=== PATIENT | female | born 1960 | race Caucasian/White ===

== ENCOUNTER 2022-12-29 21:32 | Inpatient (IN) | payer OTHER ==
[~2022-12-29] VITALS: Ht 165.1 cm; Wt 95.3 kg
[~2022-12-29 21:32] MED LIST: ACET325C7 PO; APIX5TAB PO; BISA10SU11 RC; DOCU100C36 PO; FURO-144 PO; HYDR-4303 PO; LACT10SO29 PO; LORA-259 PO; MAGN400O6 PO; NA P133E RC; PANT40TA2 PO; POTA-58 PO; SERT25TA PO
--- NOTE | 2022-12-29 22:07 | NUR ---
BIBRA 37 FROM [facility] FOR ABDOMINAL DISTENTION, W/ HX OF ASCITES. PLACED IN BED, VITALS CHECKED. AWAITING MD INTERIANO.
[2022-12-29] MEDS ORDERED: ONDANSETRON HCL/PF 4 MG/2 ML VIAL ONE (22:55)
[2022-12-29] MEDS ORDERED: MORPHINE SULFATE INJ 2 MG/ML DISP.SYRIN ONE (22:55)
--- NOTE | 2022-12-29 22:58 | NUR ---
EKG DONE AT BEDSIDE
[2022-12-29] MEDS ORDERED: ONDANSETRON HCL/PF - ER 4 MG/2 ML VIAL IV ONE (23:00)
[2022-12-29] MEDS ORDERED: MORPHINE SULFATE INJ 2 MG/ML DISP.SYRIN IV ONE (23:00)
--- NOTE | 2022-12-29 23:10 | NUR ---
ESTABLISHED IV LINE AT L HAND, 20G. BLOOD DRAWN AND HANDED IT TO THE PHLEB AT BEDSIDE.
[2022-12-29 23:24] LABS: BASOPHILS # (AUTO) 0.1 K/uL (0.0-0.2); BASOPHILS % (AUTO) 1.1 % (0.0-2.0); EOSINOPHILS % (AUTO) 0.8 % (0.0-6.0); HEMATOCRIT 35 % (33-45); HEMOGLOBIN 10.7 g/dL (11.5-14.8); LYMPHOCYTES # (AUTO) 1.6 K/uL (0.8-4.8); LYMPHOCYTES % (AUTO) 20.4 % (20.0-44.0); MEAN CORPUSCULAR HGB CONC 31 g/dl (31.0-36.0); MEAN CORPUSCULAR VOLUME 74 fL (82-100); MONOCYTES # (AUTO) 1.1 K/uL (0.1-1.30); MONOCYTES % (AUTO) 14.6 % (2.0-12.0); NEUTROPHILS # (AUTO) 4.9 K/uL (1.8-8.9); NEUTROPHILS % (AUTO) 63.1 % (43.0-81.0); PLATELET COUNT (AUTO) 305 K/uL (150-450); RED BLOOD CELL COUNT(AUTO) 4.72 MIL/uL (4.0-5.2); WHITE BLOOD COUNT (AUTO) 7.8 K/uL (4.3-11.0)
[2022-12-29 23:34] LABS: CALCIUM, SERUM 8.9 mg/dL (8.5-10.1); CREATININE 1.1 mg/dL (0.6-1.3); POTASSIUM 2.9 mmol/L (3.5-5.1)
--- NOTE | 2022-12-29 23:37 | NUR ---
URINE SAMPLE COLLECTED AND SENT TO LAB.
--- NOTE | 2022-12-29 23:39 | NUR ---
SMOKE JUMPER AT BEDSIDE.
[2022-12-29 23:40] LABS: ALBUMIN 1.9 g/dL (3.4-5.0); BILIRUBIN,DIRECT 1.8 mg/dL (0.0-0.2); BILIRUBIN,TOTAL 2.7 mg/dL (0.2-1.0); TOTAL PROTEIN, SERUM 6.7 g/dL (6.4-8.2)
[2022-12-30 00:38] LABS: BILIRUBIN,URINE 1+ (NEGATIVE); COLOR,URINE YELLOW (YELLOW); LEUKOCYTE ESTERASE ,URINE NEGATIVE (NEGATIVE); NITRITE, URINE NEGATIVE (NEGATIVE); PROTEIN,URINE NEGATIVE (NEGATIVE); UGLUCOSE NEGATIVE (NEGATIVE)
[2022-12-30 00:51] LABS: BACTERIA,URINE None seen /HPF (None Seen); CALCIUM OXALATE CRYSTALS,UR Moderate /HPF (None Seen); RBC,URINE 0-2 /HPF (0-2); SQUAMOUS EPITHELIAL CELL,UR 0-2 /HPF (None Seen); WBC,URINE 0-2 /HPF (0-3)
[2022-12-30 00:58] LABS: EOSINOPHILS % (MANUAL) 1 % (0-4); LYMPHOCYTES % (MANUAL) 20 % (16-48); MONOCYTES % (MANUAL) 5 % (0-11.0); NEUTROPHILS % (MANUAL) 74 (42-76)
[2022-12-30] MEDS ORDERED: ALBUMIN 25% 12.5 GM in PREMIX 1 EA IV PRN (01:30)
[2022-12-30] MEDS ORDERED: Z GUARD REMEDY 4 OZ OINT TP PRN (01:30)
[2022-12-30] MEDS ORDERED: MORPHINE SULFATE INJ 2 MG/ML DISP.SYRIN IV PRN (01:30)
[2022-12-30] MEDS ORDERED: MAGNESIUM HYDROXIDE 30 ML UDC PO PRN ×2 (01:30→10:00)
[2022-12-30] MEDS ORDERED: ONDANSETRON HCL/PF 4 MG/2 ML VIAL IVP PRN (01:30)
[2022-12-30] MEDS ORDERED: MORPHINE SULFATE INJ 2 MG/ML DISP.SYRIN IV ONE (01:30)
[2022-12-30] MEDS ORDERED: POTASSIUM CHLORIDE 20 MEQ TAB.PRT.SR PO ONE ×2 (01:45→01:49)
[2022-12-30] MEDS ORDERED: MORPHINE SULFATE INJ 2 MG/ML DISP.SYRIN ONE (01:49)
--- NOTE | 2022-12-30 02:02 | NUR ---
REPORT GIVEN TO NESHA DIAZ ([facility]).
--- NOTE | 2022-12-30 02:12 | NUR ---
PT TRANSFERRED TO [facility]IA [facility] PROTOCOL.
--- NOTE | 2022-12-30 02:15 | NUR ---
PAIN MANAGEMENT NURSE PRACTITIONER NOTES ADMITTED A 62 Y/O FEMALE WITH CC OF ABDOMINAL DISTENTION; CAME FROM ER VIA GURNEY TRANSFERRED PATIENT TO BED SAFELY AND SECURED; A/O X 4 WITH EPISODES OF FORGETFULNESS; HOOKED TO OXYGEN VIA NASAL CANNULA AT 2 LPM SATURATING WELL; WITH IV ACCESS AT LEFT HAND #20G SL PATENT AND INTACT NO SWELLING OR INFILTRATION NOTED, ON CARDIAC DIET NURSING SWALLOW EVALUATION DONE NO ASPIRATION NOTED. PATIENT ABDOMEN IS DISTENDED; SKIN ASSESSMENT DONE; NOTED RASH AT PERINEAL AREA REFUSED FOR TAKING PICTURES; PATIENT ON BEDREST UNABLE TO STAND; HISTORY TAKEN AND RECORDED; ALL ATTENDING PHYSICIAN INFORMED; ALL ADMITTING ORDERS DONE; BED BATH DONE; PATIENT IS ORIENTED THE UNIT; PATIENT IS COOPERATIVE AND ABLE TO TURN, KEPT BED ON LOWER LOCKED POSITION; KEPT SIDE RAILS UP X 2 ALL THE TIME; KEPT CALL LIGHT WITHIN AT REACH. WILL CONTINUE TO MONITOR.
--- NOTE | 2022-12-30 06:46 | NUR ---
RN CLOSING NOTES PATIENT IS IN BED ASLEEP, A/O X 4 ABLE TO VERBALIZED NEEDS AND CONCERNS; HOOKED TO OXYGEN VIA NASAL CANNULA AT 2 LPM SATURATING WELL NO SOB/ NOTED AT THIS TIME, PATIENT IS ON BED REST, WITH IV ACCESS AT LEFT HAND #20G -SL PATENT AND INTACT NO SWELLING OR INFILTRATION NOTED AT THIS TIME. FOR US PARACENTESIS, ALL DUE MEDICATIONS GIVEN ORDERED, ALL NEEDS ATTENDED. KEPT BED ON MODERATE HIHG BACK REST POSITION, KEPT SIDE RAILS UP X 2 ALL THE TIME, KEPT CALL LIGHT WITHIN AT REACH, WILL ENDORSED TO AM SHIFT FOR LAUREN.
--- NOTE | 2022-12-30 07:10 | NUR ---
TRIMMING MACHINE SET UP OPERATOR OPENING NOTES Received pt awake in bed AOX4. No complaints of pain or discomfort at this time. Pt is currently on 2L NC and tolerating it well. IV access on left hand 20G patent and intact. HOB elevated to pts comfort. Siderails up at all times x3. Call light within reach. Will continue to monitor.
[2022-12-30] MEDS ORDERED: PANTOPRAZOLE 40 MG TABLET.DR PO SCH (07:30)
[2022-12-30 08:00] VITALS: BP 116/81; TEMP 97.9; O2SAT 95
[2022-12-30] MEDS ORDERED: ONDA4TAB5 PO (08:08)
[2022-12-30] MEDS ORDERED: POTA-10 PO (08:08)
[2022-12-30] MEDS ORDERED: MELA3TAB41 PO (08:08)
[2022-12-30] MEDS ORDERED: FURO-144 PO (08:08)
[2022-12-30] MEDS ORDERED: PANT40TA2 PO (08:08)
[2022-12-30] MEDS ORDERED: POTA-58 PO (08:08)
[2022-12-30] MEDS ORDERED: SERT25TA PO (08:08)
[2022-12-30] MEDS ORDERED: SUCR1TAB31 PO (08:08)
[2022-12-30] MEDS ORDERED: DIPH50CA4 PO (08:08)
[2022-12-30] MEDS ORDERED: LORAZEPAM 1 MG TABLET PO PRN (10:00)
[2022-12-30] MEDS ORDERED: diphenhydrAMINE HCL 50 MG CAPSULE PO PRN (10:00)
[2022-12-30] MEDS ORDERED: NA PHOS,M-B/NA PHOS,DI-BA 1 EA ENEMA RC PRN (10:00)
[2022-12-30] MEDS ORDERED: HYDROCODONE/APAP 5/325MG TABLET PO PRN ×2 (10:00)
[2022-12-30] MEDS: SUCRALFATE 1 G TABLET PO SCH ×3 (11:05→23:17)
[2022-12-30] MEDS: SERTRALINE HCL 25 MG TABLET PO SCH (11:05)
--- NOTE | 2022-12-30 11:50 | NUR ---
BIBLE READER NOTES Paracentesis done and 5L of fluid taken out. Pt tolerated the procedure well.
--- NOTE | 2022-12-30 13:20 | NUR ---
MOHSEN Botello NP notified that 5L of fluid was taken out Addendum: 12/30/22 at 1321 by NESHA MATTHEWS LVN ERROR
--- NOTE | 2022-12-30 13:21 | NUR ---
CLERICAL CAR CHECKER NOTES LUKAS Botello made aware that 5L of fluid was taken out from the paracentesis with orders to discard the fluid and Ok to continue eliquis.
[2022-12-30 16:00] VITALS: BP 118/71; TEMP 97.9; O2SAT 95
[2022-12-30] MEDS: FUROSEMIDE 40 MG TABLET PO SCH (16:42)
[2022-12-30] MEDS: DOCUSATE SODIUM 100 MG CAPSULE PO SCH (16:42)
[2022-12-30] MEDS: APIXABAN 5 MG TABLET PO SCH (16:43)
--- NOTE | 2022-12-30 18:27 | NUR ---
PACKER INSPECTOR CLOSING NOTES All due meds and tx given as ordered. Pt tolerated everything well. All needs attended to. Call light within reach. Will endorse to oncoming nurse.
--- NOTE | 2022-12-30 19:35 | NUR ---
RN OPENING NOTES PATIENT IS IN BED AWAKE, A/O X 4 ABLE TO VERBALIZED NEEDS AND CONCERNS; ON SUPPLEMENTAL OXYGEN VIA NASAL CANNULA AT 2 LPM, NO SOB/ NOTED AT THIS TIME. IV ACCESS AT LEFT HAND #20G, FLUSHES WELL, PATENT AND INTACT NO SWELLING OR INFILTRATION NOTED AT THIS TIME. BED LOCKED IN THE LOWEST POSITION, SIDE RAILS UP X 2, CALL LIGHT AND BELONGINGS WITHIN REACH, BED ALARM ON. WILL CONTINUE TO MONITOR. Addendum: 12/31/22 at 0202 by SOFIA GRIFFIN RN MARÍA NOTED, DRAINING YELLOW COLOR OUTPUT.
[2022-12-30 20:00] VITALS: BP 137/81; TEMP 98.3; O2SAT 94
[2022-12-31] VITALS: BP 137/81; TEMP 98.3; O2SAT 94
[2022-12-31 04:00] VITALS: BP 128/83; TEMP 97.5; O2SAT 98
--- NOTE | 2022-12-31 04:23 | NUR ---
RN NOTE DR SCHULTE'S NOTE SAYS DWAYNE POST PARACENTESIS. COMMUNICATED TO LUKAS GUADARRAMA. NO NEW ORDERS RESPONSE WAS RECEIVED.
[2022-12-31 05:48] LABS: BASOPHILS # (AUTO) 0.1 K/uL (0.0-0.2); BASOPHILS % (AUTO) 1.6 % (0.0-2.0); HEMATOCRIT 34 % (33-45); HEMOGLOBIN 10.4 g/dL (11.5-14.8); LYMPHOCYTES # (AUTO) 1.5 K/uL (0.8-4.8); LYMPHOCYTES % (AUTO) 25.7 % (20.0-44.0); MEAN CORPUSCULAR HGB CONC 31 g/dl (31.0-36.0); MEAN CORPUSCULAR VOLUME 74 fL (82-100); MONOCYTES # (AUTO) 1.1 K/uL (0.1-1.30); MONOCYTES % (AUTO) 18.3 % (2.0-12.0); NEUTROPHILS # (AUTO) 3.1 K/uL (1.8-8.9); NEUTROPHILS % (AUTO) 52.4 % (43.0-81.0); PLATELET COUNT (AUTO) 273 K/uL (150-450); RED BLOOD CELL COUNT(AUTO) 4.56 MIL/uL (4.0-5.2); WHITE BLOOD COUNT (AUTO) 5.9 K/uL (4.3-11.0)
[2022-12-31] MEDS: SUCRALFATE 1 G TABLET PO SCH ×2 (05:50→12:15)
[2022-12-31 06:03] LABS: CREATININE 1.1 mg/dL (0.6-1.3); MAGNESIUM 2.1 mg/dL (1.8-2.4); PHOSPHORUS 3.3 mg/dL (2.5-4.9); POTASSIUM 3.1 mmol/L (3.5-5.1)
[2022-12-31 06:16] LABS: EOSINOPHILS % (MANUAL) 3 % (0-4); LYMPHOCYTES % (MANUAL) 24 % (16-48); MONOCYTES % (MANUAL) 11 % (0-11.0); NEUTROPHILS % (MANUAL) 62 (42-76)
--- NOTE | 2022-12-31 06:50 | NUR ---
RN CLOSING NOTES PATIENT IS IN BED AWAKE, A/O X 4 ABLE TO VERBALIZED NEEDS AND CONCERNS; ON SUPPLEMENTAL OXYGEN VIA NASAL CANNULA AT 2 LPM, SATURATION 98%, NO SOB/ NOTED AT THIS TIME. IV ACCESS AT LEFT HAND #20G, FLUSHES WELL, PATENT AND INTACT NO SWELLING OR INFILTRATION NOTED AT THIS TIME. PUREWICK NOTED, DRAINING YELLOW COLOR OUTPUT. BED LOCKED IN THE LOWEST POSITION, SIDE RAILS UP X 2, CALL LIGHT AND BELONGINGS WITHIN REACH, BED ALARM ON. WILL ENDORSE TO THE NEXT SHIFT.
--- NOTE | 2022-12-31 07:37 | NUR ---
RN OPENING NOTES PATIENT RECEIVED IN BED AWAKE, A/O X 4 ABLE TO VERBALIZED NEEDS AND CONCERNS. ON 2L OF O2 VIA NASAL CANNULA WITH NO S/S OF SOB OR RESPIRATORY DISTRESS NOTED. IV ACCESS AT LEFT HAND #20G, PATENT AND INTACT. SAFETY MEASURES IN PLACE WITH BED IN LOWEST LOCKED POSITION, SIDE RAILS UP X 2, CALL LIGHT AND BELONGINGS WITHIN REACH, BED ALARM ON. WILL CONTINUE TO MONITOR.
[2022-12-31 08:00] VITALS: BP 116/75; TEMP 97.7; O2SAT 97
[2022-12-31] MEDS ORDERED: PANTOPRAZOLE 40 MG TABLET.DR PO SCH (09:00)
[2022-12-31] MEDS ORDERED: SPIRONOLACTONE 25 MG TABLET PO SCH (09:00)
[2022-12-31] MEDS ORDERED: POTASSIUM CHLORIDE 20 MEQ TAB.PRT.SR PO SCH ×2 (09:00)
[2022-12-31] MEDS: SERTRALINE HCL 25 MG TABLET PO SCH (09:08)
[2022-12-31] MEDS: DOCUSATE SODIUM 100 MG CAPSULE PO SCH (09:09)
[2022-12-31] MEDS: FUROSEMIDE 40 MG TABLET PO SCH (09:10)
[2022-12-31] MEDS: APIXABAN 5 MG TABLET PO SCH (09:10)
[2022-12-31] MEDS ORDERED: SPIR25TA6 PO (11:11)
[2022-12-31 11:40] VITALS: O2SAT 93
--- NOTE | 2022-12-31 11:42 | NUR ---
PATIENT FOUND WITH O2 2 L AWAKE AND ALERT. PATIENT IS STABLE NO DISTRESS NOTED. Addendum: 12/31/22 at 1143 by CATIA KNOX RT Amended: Links added.
--- NOTE | 2022-12-31 15:00 | NUR ---
ALBUMIN 25% WAS NOT ADMINISTERED POST PARACENTESIS ON 12/30. IT WAS ADMINISTERED THIS AFTERNOON 12/31 AT 1400. INEZ MEDEL.
--- NOTE | 2022-12-31 15:36 | NUR ---
PATIENT DISCHARGED IN STABLE CONDITION. REPORT GIVEN TO ALL CARE LIVING NESHA RODRIGUEZ.
== END 2022-12-31 15:24 | DRG 280 ==
LOC: ER 21:33 → MEDSG1 12-30 01:20
PROVIDERS: ADMIT Nurse Practitioner Acute Care; ATTEND Nurse Practitioner Acute Care
PROC: 0W9G3ZZ Drainage of Peritoneal Cavity, Percutaneous Approach (ICD-10-PCS; principal; 2022-12-30)
DX: K70.31 Alcoholic cirrhosis of liver with ascites (principal); E43 Unspecified severe protein-calorie malnutrition; D68.59 Other primary thrombophilia; J90 Pleural effusion, not elsewhere classified; E88.09 Other disorders of plasma-protein metabolism, not elsewhere classified; R09.02 Hypoxemia; Z86.16 Personal history of COVID-19; Z86.711 Personal history of pulmonary embolism; Z87.11 Personal history of peptic ulcer disease; Z85.3 Personal history of malignant neoplasm of breast; Z88.1 Allergy status to other antibiotic agents; Z79.01 Long term (current) use of anticoagulants; Z79.899 Other long term (current) drug therapy; E66.01 Morbid (severe) obesity due to excess calories; G47.33 Obstructive sleep apnea (adult) (pediatric); E87.6 Hypokalemia; D53.9 Nutritional anemia, unspecified; R74.01 Elevation of levels of liver transaminase levels
CPT/HCPCS: 36415; 71045-TC; 71250-TC; 76942-TC; 80048-TC; 80076-TC; 81001; 83690-TC; 83735-TC; 84100-TC; 85025-TC; 85730-TC; 87081-TC; 93970-TC; 94799-TC; A4216; A4223; G0378; J2270; J2405; J7030; J7050; P9047; Q0163

== ENCOUNTER 2023-01-15 11:14 | Inpatient (IN) | payer OTHER ==
[2023-01-15] VITALS (8 sets, daily range): BP systolic 87–156; BP diastolic 53–98; TEMP 98.4; O2SAT 96–100
[~2023-01-15] VITALS: Ht 160 cm; Wt 89.4 kg
[~2023-01-15 11:14] MED LIST changes: +DIPH50CA4 PO; +MELA3TAB41 PO; +ONDA4TAB5 PO; +SPIR25TA6 PO; +SUCR1TAB31 PO
[2023-01-15] MEDS ORDERED: LEVOFLOXACIN 500 MG /D5W 100ML 500 MG/100 ML PIGGYBACK IV ONE (11:30)
[2023-01-15] MEDS ORDERED: FLAGYL/NS RTU 500 MG/100 ML PIGGYBACK IV ONE (11:30)
[2023-01-15] MEDS ORDERED: IV NS 0.9% 1,000 ML BAG IV ONE ×2 (12:00→14:30)
[2023-01-15] MEDS ORDERED: MAGN400T26 PO (12:02)
[2023-01-15] MEDS ORDERED: BISA10SU11 RC (12:02)
[2023-01-15] MEDS ORDERED: METRONIDAZOLE 500MG/ NS 100ML 100 ML IV ONE (12:43)
[2023-01-15] MEDS ORDERED: LEVOFLOXACIN 500 MG /D5W 100ML 100 ML IV ONE (12:57)
[2023-01-15 13:10] LABS: BASOPHILS % (AUTO) 0.1 % (0.0-2.0); EOSINOPHILS % (AUTO) 0.2 % (0.0-6.0); HEMATOCRIT 36 % (33-45); HEMOGLOBIN 10.9 g/dL (11.5-14.8); LYMPHOCYTES # (AUTO) 1.3 K/uL (0.8-4.8); LYMPHOCYTES % (AUTO) 12.1 % (20.0-44.0); MEAN CORPUSCULAR HEMOGLOBIN 23 PG (26.0-33.0); MEAN CORPUSCULAR HGB CONC 31 g/dl (31.0-36.0); MEAN CORPUSCULAR VOLUME 74 fL (82-100); MONOCYTES # (AUTO) 0.9 K/uL (0.1-1.30); NEUTROPHILS # (AUTO) 8.7 K/uL (1.8-8.9); NEUTROPHILS % (AUTO) 79.6 % (43.0-81.0); PLATELET COUNT (AUTO) 292 K/uL (150-450); RED BLOOD CELL COUNT(AUTO) 4.81 MIL/uL (4.0-5.2); RED CELL DISTRIBUTION WIDTH 26.9 % (11.5-15.0); WHITE BLOOD COUNT (AUTO) 10.9 K/uL (4.3-11.0)
[2023-01-15 13:37] LABS: CARBON DIOXIDE 22 mmol/L (21-32); CHLORIDE 98 mmol/L (98-107); CREATININE 2.4 mg/dL (0.6-1.3); GLUCOSE 77 mg/dL (74-106); POTASSIUM 5.6 mmol/L (3.5-5.1); SODIUM SERUM 132 mmol/L (136-145); UREA NITROGEN, BLOOD 46 mg/dL (7-18)
[2023-01-15 13:38] LABS: LACTIC ACID 4.9 mmol/L (0.4-2.0)
[2023-01-15 13:41] LABS: INR 1.92 (0.91-1.10); PARTIAL THROMBOPLASTIN TIME 40.5 SEC (24.3-34.3); PROTHROMBIN TIME 19.4 SECS (9.2-11.1)
[2023-01-15 13:51] LABS: ALANINE AMINOTRANSFERASE 83 U/L (12-78); ALBUMIN 1.8 g/dL (3.4-5.0); ALKALINE PHOSPHATASE 675 U/L (46-116); ASPARTATE AMINOTRANSFERASE 319 U/L (15-37); BILIRUBIN,DIRECT 5.5 mg/dL (0.0-0.2); NT-PRO BNP 616 pg/mL (0-125); TOTAL PROTEIN, SERUM 6.7 g/dL (6.4-8.2)
[2023-01-15 13:55] LABS: ANISOCYTOSIS 2+; HYPOCHROMASIA 2+; LYMPHOCYTES % (MANUAL) 16 % (16-48); MONOCYTES % (MANUAL) 3 % (0-11.0); NEUTROPHILS % (MANUAL) 81 (42-76); PLATELET ESTIMATE ADEQUATE
[2023-01-15 13:56] LABS: TARGET CELLS 1+
[2023-01-15 15:02] LABS: ALCOHOL, BLOOD < 3 mg/dL (0-10); SERUM AMMONIA 62 umol/L (11-32)
[2023-01-15] MEDS ORDERED: NA PHOS,M-B/NA PHOS,DI-BA 1 EA ENEMA RC PRN (15:30)
[2023-01-15] MEDS ORDERED: LORAZEPAM 1 MG TABLET PO PRN (15:30)
[2023-01-15] MEDS ORDERED: LACTULOSE 10 G/15 ML UDC (PYXIS) PO PRN ×2 (16:30→17:30)
[2023-01-15] MEDS ORDERED: MAGNESIUM OXIDE 400 MG TABLET PO SCH (17:00)
[2023-01-15] MEDS ORDERED: DOCUSATE SODIUM 100 MG CAPSULE PO SCH (17:00)
[2023-01-15 17:05] LABS: ABG BASE EXCESS -2.2 mmol/L; ABG OXYGEN SATURATION 90.8 % (92.0-98.5); ABG PCO2 30.7 mmHg (35.0-45.0); ABG PH 7.451 (7.350-7.450); ABG PO2 63.5 mmHg (75.0-100.0); ABG TOTAL HEMOGLOBIN 11.7 G/dL (12.0-16.0); COHb 0.6 % (0.5-1.5); MetHb 0.5 % (0.0-1.5); O2Hb 89.8 % (94.0-97.0); SITE, ABG Right Radial; VENT MODE, BG ROOM AIR
[2023-01-15] MEDS ORDERED: LACTULOSE 10 G/15 ML UDC (PYXIS) PO ONE (17:30)
[2023-01-15] MEDS ORDERED: FAMOTIDINE/PF INJ 20 MG/2 ML VIAL IV ONE (18:00)
[2023-01-15] MEDS ORDERED: PROPOFOL 100 ML IV PRN (18:00)
[2023-01-15] MEDS ORDERED: ETOMIDATE 2 MG/ML VIAL IV ONE (18:00)
[2023-01-15] MEDS ORDERED: ROCURONIUM BROMIDE 50 MG/5 ML IV ONE (18:00)
[2023-01-15] MEDS ORDERED: FAMOTIDINE/PF INJ 20 MG/2 ML VIAL IV SCH (18:00)
[2023-01-15 18:04] LABS: ACETAMINOPHEN < 10 ug/ml (10-30)
[2023-01-15 18:05] LABS: SALICYLATE < 2.3 mg/dL (2.8-20.0)
[2023-01-15] MEDS: NOREPINEPHRINE 8 MG in IV NS 0.9% 250ML IV PRN ×2 (18:22→18:50)
[2023-01-15] MEDS ORDERED: NOREPINEPHRINE 8 MG in IV NS 0.9% 250 ML IV ONE (18:30)
[2023-01-15 18:46] LABS: CALCIUM, SERUM 9.5 mg/dL (8.5-10.1); CREATININE 2.7 mg/dL (0.6-1.3); POTASSIUM 5.5 mmol/L (3.5-5.1)
[2023-01-15 19:40] LABS: AMPHETAMINE, URINE NEGATIVE (NEGATIVE); BARBITURATE, URINE NEGATIVE (NEGATIVE); BENZODIAZEPINE, URINE NEGATIVE (NEGATIVE); CANNABINOID, URINE NEGATIVE (NEGATIVE); COCCAINE, URINE NEGATIVE (NEGATIVE); PHENCYCLIDINE SCREEN,URINE NEGATIVE (NEGATIVE)
[2023-01-15 19:41] LABS: OPIATE, URINE POSITIVE (NEGATIVE)
[2023-01-15 19:55] LABS: APPEARANCE,URINE CLOUDY (CLEAR); BILIRUBIN,URINE 2+ (NEGATIVE); BLOOD, URINE 3+ Ery/uL (NEGATIVE); COLOR,URINE RED (YELLOW); KETONES,URINE TRACE mg/dL (NEGATIVE); LEUKOCYTE ESTERASE ,URINE TRACE (NEGATIVE); NITRITE, URINE POSITIVE (NEGATIVE); PH,URINE 5.5 (5.0-8.0); PROTEIN,URINE 2+ mg/dl (NEGATIVE); UGLUCOSE NEGATIVE (NEGATIVE)
[2023-01-15] MEDS: NOREPINEPHRINE 8 MG in IV NS 0.9% 242 ML IV PRN (20:14)
[2023-01-15 20:24] LABS: RBC,URINE 81-100 /HPF (0-2)
[2023-01-15 20:25] LABS: ADD URINE CULTURE YES; BACTERIA,URINE 2+ /HPF (None Seen); MUCUS,URINE Moderate /LPF (None Seen); SQUAMOUS EPITHELIAL CELL,UR Many /HPF (None Seen)
[2023-01-15] MEDS: PROPOFOL 100 ML IV PRN (20:25)
[2023-01-15] MEDS ORDERED: ALBUMIN 25% 25 GM in PREMIX 1 EA IV SCH (20:30)
[2023-01-15] MEDS ORDERED: CEFTRIAXONE 1 G in IV D5W 50 ML IV SCH (21:00)
[2023-01-15] MEDS: APIXABAN 5 MG TABLET PO SCH (21:00)
[2023-01-15 22:03] LABS: LIPASE 198 U/L (73-393)
[2023-01-15 22:05] LABS: SERUM AMMONIA 23 umol/L (11-32)
[2023-01-15] MEDS: LACTULOSE 10 G/15 ML UDC (PYXIS) PO SCH (22:08)
[2023-01-15 22:37] LABS: ABG BASE EXCESS -7.2 mmol/L; ABG OXYGEN SATURATION 96.8 % (92.0-98.5); ABG PCO2 33.4 mmHg (35.0-45.0); ABG PH 7.341 (7.350-7.450); AaDO2 581.6 mmHg; MetHb 0.2 % (0.0-1.5); O2Hb 95.6 % (94.0-97.0); PEEP,BG 5 cm H2O; SITE, ABG Right Brachial
[2023-01-15] MEDS: RIFAXIMIN 550 MG TABLET PO SCH (22:42)
[2023-01-15] MEDS: SUCRALFATE 1 G TABLET PO SCH (23:29)
[2023-01-16] VITALS (48 sets, daily range): BP systolic 83–132; BP diastolic 40–91; TEMP 97.8–98.8; O2SAT 92–100
[2023-01-16] MEDS ORDERED: FUROSEMIDE 40 MG/4 ML VIAL IV SCH (02:00)
[2023-01-16] MEDS: PROPOFOL 100 ML IV PRN ×3 (04:12→17:52)
[2023-01-16 04:48] LABS: BASOPHILS # (AUTO) 0.1 K/uL (0.0-0.2); BASOPHILS % (AUTO) 0.3 % (0.0-2.0); EOSINOPHILS % (AUTO) 0.1 % (0.0-6.0); HEMATOCRIT 32 % (33-45); HEMOGLOBIN 9.7 g/dL (11.5-14.8); LYMPHOCYTES # (AUTO) 1.6 K/uL (0.8-4.8); LYMPHOCYTES % (AUTO) 6.9 % (20.0-44.0); MEAN CORPUSCULAR HEMOGLOBIN 23 PG (26.0-33.0); MEAN CORPUSCULAR HGB CONC 31 g/dl (31.0-36.0); MEAN CORPUSCULAR VOLUME 75 fL (82-100); MONOCYTES # (AUTO) 1.9 K/uL (0.1-1.30); NEUTROPHILS # (AUTO) 19.9 K/uL (1.8-8.9); NEUTROPHILS % (AUTO) 84.7 % (43.0-81.0); PLATELET COUNT (AUTO) 290 K/uL (150-450); RED BLOOD CELL COUNT(AUTO) 4.23 MIL/uL (4.0-5.2); RED CELL DISTRIBUTION WIDTH 26.9 % (11.5-15.0); WHITE BLOOD COUNT (AUTO) 23.5 K/uL (4.3-11.0)
[2023-01-16 05:06] LABS: ALBUMIN 2.1 g/dL (3.4-5.0); BILIRUBIN,TOTAL 7.3 mg/dL (0.2-1.0); CALCIUM, SERUM 9.8 mg/dL (8.5-10.1); CREATININE 2.6 mg/dL (0.6-1.3); MAGNESIUM 2.4 mg/dL (1.8-2.4); PHOSPHORUS 5.8 mg/dL (2.5-4.9); TOTAL PROTEIN, SERUM 6.3 g/dL (6.4-8.2)
[2023-01-16 05:12] LABS: ANISOCYTOSIS 1+; HYPOCHROMASIA 2+; LYMPHOCYTES % (MANUAL) 2 % (16-48); MONOCYTES % (MANUAL) 9 % (0-11.0); NEUTROPHILS % (MANUAL) 89 (42-76); PLATELET ESTIMATE ADEQUATE
[2023-01-16 05:13] LABS: TARGET CELLS 2+
[2023-01-16] MEDS: NOREPINEPHRINE 8 MG in IV NS 0.9% 242 ML IV PRN ×2 (05:19→13:09)
[2023-01-16] MEDS: SUCRALFATE 1 G TABLET PO SCH (06:31)
[2023-01-16] MEDS ORDERED: ALBUMIN 25% 25 GM in PREMIX 1 EA IV SCH (07:00)
[2023-01-16] MEDS ORDERED: Z GUARD REMEDY 4 OZ OINT TP PRN (08:00)
[2023-01-16] MEDS: APIXABAN 5 MG TABLET PO SCH (08:02)
[2023-01-16] MEDS: RIFAXIMIN 550 MG TABLET PO SCH ×2 (08:03→08:38)
[2023-01-16] MEDS: PROPRANOLOL HCL 40 MG TABLET PO SCH ×2 (08:03→16:08)
[2023-01-16 08:24] LABS: ABG BASE EXCESS -2.7 mmol/L; ABG OXYGEN SATURATION 93.4 % (92.0-98.5); ABG PCO2 33.6 mmHg (35.0-45.0); ABG PH 7.418 (7.350-7.450); ABG PO2 70.8 mmHg (75.0-100.0); ABG TOTAL HEMOGLOBIN 11.3 G/dL (12.0-16.0); AaDO2 247.9 mmHg; MetHb 0.2 % (0.0-1.5); O2Hb 92.3 % (94.0-97.0); PEEP,BG 5 cm H2O; SITE, ABG Right Radial; VT, ABG 500 mL
[2023-01-16] MEDS: MEROPENEM 500 MG in IV NS 0.9% 50 ML IV SCH ×2 (08:37→19:51)
[2023-01-16] MEDS: Z GUARD REMEDY 4 OZ OINT TP SCH (08:37)
[2023-01-16] MEDS: DOCUSATE SODIUM LIQ 100 MG/10 ML UDC NG SCH ×2 (08:38→17:13)
[2023-01-16] MEDS: PANTOPRAZOLE 40 MG VIAL IV SCH ×2 (08:38→17:14)
[2023-01-16] MEDS: LACTULOSE 10 G/15 ML UDC (PYXIS) PO SCH (08:39)
[2023-01-16] MEDS ORDERED: ETOMIDATE 2 MG/ML VIAL IV ONE (08:51)
[2023-01-16] MEDS ORDERED: ROCURONIUM BROMIDE 50 MG/5 ML IV ONE (08:51)
[2023-01-16] MEDS ORDERED: FUROSEMIDE 40 MG TABLET PO SCH (09:00)
[2023-01-16] MEDS ORDERED: VANCOMYCIN 1.5 GM in IV D5W 500ml IV ONE (09:00)
[2023-01-16] MEDS ORDERED: PANTOPRAZOLE 40 MG TABLET.DR PO SCH (09:00)
[2023-01-16] MEDS ORDERED: VANCOMYCIN 1.25 GM in IV D5W 250 ML IV ONE (09:00)
[2023-01-16] MEDS ORDERED: SERTRALINE HCL 25 MG TABLET PO SCH (09:00)
[2023-01-16] MEDS ORDERED: POTASSIUM CHLORIDE 20 MEQ PO SCH (09:00)
[2023-01-16] MEDS: ALBUMIN 25% 25 GM in PREMIX 1 EA IV SCH ×2 (09:36→16:29)
[2023-01-16] MEDS ORDERED: LACTULOSE 10 G/15 ML UDC (PYXIS) NG PRN (13:00)
[2023-01-16] MEDS ORDERED: PHARMACY TO CHANGE PO MEDS TO GT/NG XX PRN (13:00)
[2023-01-16] MEDS ORDERED: LORAZEPAM 1 MG TABLET NG PRN (13:00)
[2023-01-16] MEDS ORDERED: MEROPENEM 1 G in IV NS 0.9% 100 ML IV SCH (13:00)
[2023-01-16] MEDS: LACTULOSE 10 G/15 ML UDC (PYXIS) NG SCH ×3 (13:59→20:47)
[2023-01-16] MEDS: SUCRALFATE 1 G/10 ML UDC NG SCH ×2 (13:59→17:13)
[2023-01-16] MEDS: APIXABAN 5 MG TABLET NG SCH (16:07)
[2023-01-16] MEDS: RIFAXIMIN 550 MG TABLET NG SCH (17:14)
[2023-01-16] MEDS: NOREPINEPHRINE 32 MG in IV NS 0.9% 250 ML IV PRN (18:48)
[2023-01-17] VITALS (43 sets, daily range): BP systolic 74–143; BP diastolic 47–83; TEMP 98–98.9; O2SAT 95–100
[2023-01-17] MEDS: SUCRALFATE 1 G/10 ML UDC NG SCH ×5 (00:01→23:51)
[2023-01-17] MEDS: ALBUMIN 25% 25 GM in PREMIX 1 EA IV SCH ×2 (00:01→07:14)
[2023-01-17] MEDS: IV NS 0.9% 250 ML IV PRN (01:24)
[2023-01-17] MEDS: PROPOFOL 100 ML IV PRN ×4 (02:17→22:38)
[2023-01-17 05:48] LABS: BASOPHILS % (AUTO) 0.3 % (0.0-2.0); EOSINOPHILS # (AUTO) 0.1 K/uL (0.0-0.7); EOSINOPHILS % (AUTO) 0.6 % (0.0-6.0); HEMATOCRIT 28 % (33-45); HEMOGLOBIN 8.5 g/dL (11.5-14.8); LYMPHOCYTES # (AUTO) 1.3 K/uL (0.8-4.8); LYMPHOCYTES % (AUTO) 11.5 % (20.0-44.0); MEAN CORPUSCULAR HEMOGLOBIN 23 PG (26.0-33.0); MEAN CORPUSCULAR HGB CONC 30 g/dl (31.0-36.0); MEAN CORPUSCULAR VOLUME 75 fL (82-100); MONOCYTES # (AUTO) 1.2 K/uL (0.1-1.30); MONOCYTES % (AUTO) 10.6 % (2.0-12.0); NEUTROPHILS # (AUTO) 8.7 K/uL (1.8-8.9); PLATELET COUNT (AUTO) 198 K/uL (150-450); RED BLOOD CELL COUNT(AUTO) 3.75 MIL/uL (4.0-5.2); RED CELL DISTRIBUTION WIDTH 27.2 % (11.5-15.0); WHITE BLOOD COUNT (AUTO) 11.4 K/uL (4.3-11.0)
[2023-01-17 06:04] LABS: BILIRUBIN,TOTAL 7.4 mg/dL (0.2-1.0); CALCIUM, SERUM 9.9 mg/dL (8.5-10.1); CREATININE 2.6 mg/dL (0.6-1.3); MAGNESIUM 2.6 mg/dL (1.8-2.4); PHOSPHORUS 3.5 mg/dL (2.5-4.9); POTASSIUM 3.6 mmol/L (3.5-5.1); TOTAL PROTEIN, SERUM 6.3 g/dL (6.4-8.2)
[2023-01-17 06:15] LABS: LACTIC ACID 2.9 mmol/L (0.4-2.0)
[2023-01-17] MEDS: MEROPENEM 500 MG in IV NS 0.9% 50 ML IV SCH ×2 (07:14→20:01)
[2023-01-17] MEDS: RIFAXIMIN 550 MG TABLET NG SCH ×2 (08:11→16:45)
[2023-01-17] MEDS: SERTRALINE HCL 25 MG TABLET NG SCH (08:11)
[2023-01-17] MEDS: PROPRANOLOL HCL 40 MG TABLET PO SCH ×2 (08:13→16:46)
[2023-01-17] MEDS: PANTOPRAZOLE 40 MG VIAL IV SCH (08:13)
[2023-01-17] MEDS: LACTULOSE 10 G/15 ML UDC (PYXIS) NG SCH ×2 (08:13→11:05)
[2023-01-17] MEDS: DOCUSATE SODIUM LIQ 100 MG/10 ML UDC NG SCH ×2 (08:13→16:45)
[2023-01-17] MEDS: APIXABAN 5 MG TABLET NG SCH (08:14)
[2023-01-17] MEDS: Z GUARD REMEDY 4 OZ OINT TP SCH (08:30)
[2023-01-17 09:03] LABS: BILIRUBIN,DIRECT 5.1 mg/dL (0.0-0.2)
[2023-01-17 09:20] LABS: ABG BASE EXCESS -2.6 mmol/L; ABG OXYGEN SATURATION 94.4 % (92.0-98.5); ABG PCO2 31.4 mmHg (35.0-45.0); ABG PH 7.442 (7.350-7.450); ABG PO2 75.1 mmHg (75.0-100.0); ABG TOTAL HEMOGLOBIN 9.3 G/dL (12.0-16.0); COHb 0.8 % (0.5-1.5); MetHb 0.3 % (0.0-1.5); O2Hb 93.4 % (94.0-97.0); PEEP,BG 5 cm H2O; SITE, ABG Right Radial; VT, ABG 500 mL
[2023-01-17 09:20] LABS: LACTIC ACID REFLEX 2.7 mmol/L (0.4-1.9)
[2023-01-17] MEDS ORDERED: ENOXAPARIN SODIUM 100 MG/ML DISP.SYRIN SQ SCH (12:00)
[2023-01-17] MEDS: PANTOPRAZOLE 40 MG/PACK PACK NG SCH (16:45)
[2023-01-17] MEDS ORDERED: VANCOMYCIN 1.25 GM in IV D5W 250 ML IV SCH (21:00)
[2023-01-17] MEDS: NOREPINEPHRINE 32 MG in IV NS 0.9% 250 ML IV PRN (21:02)
[2023-01-18] VITALS (34 sets, daily range): BP systolic 83–111; BP diastolic 51–71; TEMP 97.8–98.9; O2SAT 93–100
[2023-01-18] MEDS: IV NS 0.9% 250 ML IV PRN (00:40)
[2023-01-18 05:03] LABS: BASOPHILS # (AUTO) 0.1 K/uL (0.0-0.2); BASOPHILS % (AUTO) 0.8 % (0.0-2.0); EOSINOPHILS # (AUTO) 0.2 K/uL (0.0-0.7); EOSINOPHILS % (AUTO) 2.1 % (0.0-6.0); HEMATOCRIT 29 % (33-45); HEMOGLOBIN 8.9 g/dL (11.5-14.8); LYMPHOCYTES # (AUTO) 1.1 K/uL (0.8-4.8); LYMPHOCYTES % (AUTO) 11.9 % (20.0-44.0); MEAN CORPUSCULAR HEMOGLOBIN 23 PG (26.0-33.0); MEAN CORPUSCULAR HGB CONC 31 g/dl (31.0-36.0); MEAN CORPUSCULAR VOLUME 74 fL (82-100); MONOCYTES # (AUTO) 0.9 K/uL (0.1-1.30); MONOCYTES % (AUTO) 9.8 % (2.0-12.0); NEUTROPHILS # (AUTO) 7.1 K/uL (1.8-8.9); NEUTROPHILS % (AUTO) 75.4 % (43.0-81.0); PLATELET COUNT (AUTO) 193 K/uL (150-450); RED BLOOD CELL COUNT(AUTO) 3.89 MIL/uL (4.0-5.2); RED CELL DISTRIBUTION WIDTH 26.6 % (11.5-15.0); WHITE BLOOD COUNT (AUTO) 9.4 K/uL (4.3-11.0)
[2023-01-18 05:11] LABS: CALCIUM, SERUM 9.7 mg/dL (8.5-10.1); CREATININE 1.6 mg/dL (0.6-1.3); POTASSIUM 3.3 mmol/L (3.5-5.1)
[2023-01-18] MEDS: SUCRALFATE 1 G/10 ML UDC NG SCH ×4 (06:39→18:24)
[2023-01-18] MEDS: MEROPENEM 500 MG in IV NS 0.9% 50 ML IV SCH ×2 (08:02→20:20)
[2023-01-18 08:44] LABS: FERRITIN 103 ng/mL (8-388)
[2023-01-18] MEDS: DOCUSATE SODIUM LIQ 100 MG/10 ML UDC NG SCH ×2 (09:00→18:22)
[2023-01-18] MEDS: PROPRANOLOL HCL 40 MG TABLET NG SCH ×2 (09:00→17:00)
[2023-01-18 09:26] LABS: IRON, SERUM 18 ug/dl (50-175); TOTAL IRON BINDING CAPACITY 130 ug/dl (250-450)
[2023-01-18] MEDS: PANTOPRAZOLE 40 MG/PACK PACK NG SCH ×2 (09:40→18:23)
[2023-01-18] MEDS: RIFAXIMIN 550 MG TABLET NG SCH ×2 (09:40→18:24)
[2023-01-18] MEDS: SERTRALINE HCL 25 MG TABLET NG SCH (09:40)
[2023-01-18] MEDS: ENOXAPARIN SODIUM 100 MG/ML DISP.SYRIN SQ SCH ×2 (10:03→20:00)
[2023-01-18] MEDS: Z GUARD REMEDY 4 OZ OINT TP SCH (10:04)
[2023-01-18] MEDS ORDERED: POTASSIUM CL. PREMIX PERIPHER. 50 ML IV SCH (10:30)
[2023-01-18 12:43] LABS: ABG BASE EXCESS 0.4 mmol/L; ABG OXYGEN SATURATION 95.4 % (92.0-98.5); ABG PCO2 26.3 mmHg (35.0-45.0); ABG PH 7.541 (7.350-7.450); ABG PO2 74.1 mmHg (75.0-100.0); ABG TOTAL HEMOGLOBIN 10.5 G/dL (12.0-16.0); AaDO2 180.9 mmHg; COHb 0.8 % (0.5-1.5); MetHb 0.1 % (0.0-1.5); O2Hb 94.5 % (94.0-97.0); SITE, ABG Right Radial
[2023-01-18] MEDS ORDERED: VANCOMYCIN 1.25 GM in IV D5W 250 ML IV SCH (21:00)
[2023-01-18] MEDS: NOREPINEPHRINE 8 MG in IV NS 0.9% 250ML IV PRN (21:23)
[2023-01-19] VITALS (49 sets, daily range): BP systolic 93–122; BP diastolic 38–81; TEMP 97.5–99; O2SAT 94–100
[2023-01-19] MEDS: SUCRALFATE 1 G/10 ML UDC NG SCH ×5 (00:29→23:13)
[2023-01-19] MEDS: IV NS 0.9% 250 ML IV PRN (02:57)
[2023-01-19 05:05] LABS: CALCIUM, SERUM 9.6 mg/dL (8.5-10.1); CARBON DIOXIDE 25 mmol/L (21-32); CHLORIDE 107 mmol/L (98-107); CREATININE 1.3 mg/dL (0.6-1.3); GLUCOSE 105 mg/dL (74-106); POTASSIUM 3.6 mmol/L (3.5-5.1); SODIUM SERUM 140 mmol/L (136-145); UREA NITROGEN, BLOOD 38 mg/dL (7-18)
[2023-01-19 05:17] LABS: SERUM AMMONIA < 10 umol/L (11-32)
[2023-01-19 07:39] LABS: BASOPHILS # (AUTO) 0.1 K/uL (0.0-0.2); BASOPHILS % (AUTO) 0.6 % (0.0-2.0); EOSINOPHILS # (AUTO) 0.1 K/uL (0.0-0.7); EOSINOPHILS % (AUTO) 1.1 % (0.0-6.0); HEMATOCRIT 32 % (33-45); HEMOGLOBIN 9.8 g/dL (11.5-14.8); LYMPHOCYTES # (AUTO) 1.2 K/uL (0.8-4.8); LYMPHOCYTES % (AUTO) 11.8 % (20.0-44.0); MEAN CORPUSCULAR HEMOGLOBIN 23 PG (26.0-33.0); MEAN CORPUSCULAR HGB CONC 31 g/dl (31.0-36.0); MEAN CORPUSCULAR VOLUME 75 fL (82-100); MONOCYTES # (AUTO) 1.1 K/uL (0.1-1.30); MONOCYTES % (AUTO) 10.2 % (2.0-12.0); NEUTROPHILS % (AUTO) 76.3 % (43.0-81.0); PLATELET COUNT (AUTO) 216 K/uL (150-450); RED BLOOD CELL COUNT(AUTO) 4.24 MIL/uL (4.0-5.2); RED CELL DISTRIBUTION WIDTH 26.7 % (11.5-15.0); WHITE BLOOD COUNT (AUTO) 10.5 K/uL (4.3-11.0)
[2023-01-19] MEDS: ENOXAPARIN SODIUM 100 MG/ML DISP.SYRIN SQ SCH ×2 (08:00→20:00)
[2023-01-19 08:06] LABS: PTH, INTACT 21 pg/mL (15-65)
[2023-01-19] MEDS: PROPRANOLOL HCL 40 MG TABLET NG SCH ×2 (08:36→16:42)
[2023-01-19] MEDS: MEROPENEM 500 MG in IV NS 0.9% 50 ML IV SCH (08:40)
[2023-01-19] MEDS: SERTRALINE HCL 25 MG TABLET NG SCH (08:40)
[2023-01-19] MEDS: DOCUSATE SODIUM LIQ 100 MG/10 ML UDC NG SCH ×2 (08:40→17:13)
[2023-01-19] MEDS: PANTOPRAZOLE 40 MG/PACK PACK NG SCH ×2 (08:40→17:13)
[2023-01-19] MEDS: Z GUARD REMEDY 4 OZ OINT TP SCH (08:40)
[2023-01-19] MEDS: RIFAXIMIN 550 MG TABLET NG SCH ×2 (08:40→17:13)
[2023-01-19] MEDS ORDERED: MEROPENEM 500 MG in IV NS 0.9% 50 ML IV ONE (10:00)
[2023-01-19] MEDS: NOREPINEPHRINE 8 MG in IV NS 0.9% 250ML IV PRN (12:27)
[2023-01-19] MEDS: MEROPENEM 1 G in IV NS 0.9% 100 ML IV SCH (21:07)
[2023-01-20] VITALS (69 sets, daily range): BP systolic 88–130; BP diastolic 54–85; TEMP 97.9–98.8; O2SAT 94–100
[2023-01-20] MEDS: NOREPINEPHRINE 8 MG in IV NS 0.9% 250ML IV PRN ×2 (04:05→18:33)
[2023-01-20 05:23] LABS: BASOPHILS % (AUTO) 0.4 % (0.0-2.0); EOSINOPHILS # (AUTO) 0.1 K/uL (0.0-0.7); EOSINOPHILS % (AUTO) 1.2 % (0.0-6.0); HEMATOCRIT 34 % (33-45); HEMOGLOBIN 10.5 g/dL (11.5-14.8); LYMPHOCYTES # (AUTO) 1.3 K/uL (0.8-4.8); LYMPHOCYTES % (AUTO) 12.7 % (20.0-44.0); MEAN CORPUSCULAR HEMOGLOBIN 23 PG (26.0-33.0); MEAN CORPUSCULAR HGB CONC 31 g/dl (31.0-36.0); MEAN CORPUSCULAR VOLUME 75 fL (82-100); MONOCYTES # (AUTO) 1.1 K/uL (0.1-1.30); NEUTROPHILS # (AUTO) 7.8 K/uL (1.8-8.9); NEUTROPHILS % (AUTO) 74.7 % (43.0-81.0); PLATELET COUNT (AUTO) 217 K/uL (150-450); RED BLOOD CELL COUNT(AUTO) 4.51 MIL/uL (4.0-5.2); RED CELL DISTRIBUTION WIDTH 27.4 % (11.5-15.0); WHITE BLOOD COUNT (AUTO) 10.5 K/uL (4.3-11.0)
[2023-01-20 05:29] LABS: CALCIUM, SERUM 9.7 mg/dL (8.5-10.1); POTASSIUM 3.8 mmol/L (3.5-5.1)
[2023-01-20] MEDS: SUCRALFATE 1 G/10 ML UDC NG SCH ×4 (05:50→23:32)
[2023-01-20] MEDS: MEROPENEM 1 G in IV NS 0.9% 100 ML IV SCH ×2 (08:46→21:01)
[2023-01-20] MEDS: RIFAXIMIN 550 MG TABLET NG SCH ×2 (08:47→17:16)
[2023-01-20] MEDS: DOCUSATE SODIUM LIQ 100 MG/10 ML UDC NG SCH ×2 (08:47→17:16)
[2023-01-20] MEDS: SERTRALINE HCL 25 MG TABLET NG SCH (08:47)
[2023-01-20] MEDS: PANTOPRAZOLE 40 MG/PACK PACK NG SCH ×2 (08:47→17:16)
[2023-01-20] MEDS: Z GUARD REMEDY 4 OZ OINT TP SCH (08:48)
[2023-01-20] MEDS: PROPRANOLOL HCL 40 MG TABLET NG SCH ×2 (08:49→17:00)
[2023-01-20] MEDS: MORPHINE SULFATE INJ 2 MG/ML DISP.SYRIN IV PRN (09:14)
[2023-01-20] MEDS: HYDROCORTISONE SOD SUCCINATE 100 MG/2 ML VIAL IV SCH ×3 (10:47→21:12)
[2023-01-20 11:07] LABS: COMPLEMENT C3, SERUM 55 mg/dL (82-167); COMPLEMENT C4, SERUM 16 mg/dL (12-38)
[2023-01-20 13:27] LABS: INR 1.42 (0.91-1.10); PROTHROMBIN TIME 14.6 SECS (9.2-11.1)
[2023-01-20] MEDS: IV NS 0.9% 250 ML IV PRN (15:47)
[2023-01-20 18:15] LABS: APPEARANCE,SPUN,BODY FLUID CLEAR (CLEAR); TOTAL VOLUME,BODY FLUID 1550 mL; WBC, BODY FLUID 961 /cu. mm. (0-200)
[2023-01-20 18:19] LABS: MACROPHAGES, BODY FLUID 2; POLYNUCLEAR, BODY FLUID 31 % (0-25)
[2023-01-20 18:20] LABS: MONOCYTES,BODY FLUID 11 %
[2023-01-20 21:25] LABS: PROTEIN, BODY FLUID 2.1 G/DL
[2023-01-21] VITALS (50 sets, daily range): BP systolic 85–135; BP diastolic 50–90; TEMP 97.7–98.2; O2SAT 46–100
[2023-01-21 03:06] LABS: HEPATITIS B SURFACE AB Non Reactive (.)
[2023-01-21 05:17] LABS: BASOPHILS % (AUTO) 0.1 % (0.0-2.0); HEMATOCRIT 35 % (33-45); HEMOGLOBIN 10.7 g/dL (11.5-14.8); LYMPHOCYTES # (AUTO) 1.2 K/uL (0.8-4.8); LYMPHOCYTES % (AUTO) 10.4 % (20.0-44.0); MEAN CORPUSCULAR HEMOGLOBIN 23 PG (26.0-33.0); MEAN CORPUSCULAR HGB CONC 31 g/dl (31.0-36.0); MEAN CORPUSCULAR VOLUME 75 fL (82-100); MONOCYTES # (AUTO) 0.7 K/uL (0.1-1.30); MONOCYTES % (AUTO) 6.2 % (2.0-12.0); NEUTROPHILS # (AUTO) 9.9 K/uL (1.8-8.9); NEUTROPHILS % (AUTO) 83.3 % (43.0-81.0); PLATELET COUNT (AUTO) 195 K/uL (150-450); RED BLOOD CELL COUNT(AUTO) 4.67 MIL/uL (4.0-5.2); RED CELL DISTRIBUTION WIDTH 26.7 % (11.5-15.0); WHITE BLOOD COUNT (AUTO) 11.9 K/uL (4.3-11.0)
[2023-01-21] MEDS: SUCRALFATE 1 G/10 ML UDC NG SCH ×3 (05:27→17:00)
[2023-01-21] MEDS: HYDROCORTISONE SOD SUCCINATE 100 MG/2 ML VIAL IV SCH ×3 (05:27→22:06)
[2023-01-21 05:44] LABS: ALBUMIN 2.1 g/dL (3.4-5.0); BILIRUBIN,TOTAL 9.9 mg/dL (0.2-1.0); CALCIUM, SERUM 9.6 mg/dL (8.5-10.1); CREATININE 1.1 mg/dL (0.6-1.3); MAGNESIUM 2.4 mg/dL (1.8-2.4); PHOSPHORUS 2.6 mg/dL (2.5-4.9); POTASSIUM 3.9 mmol/L (3.5-5.1)
[2023-01-21 05:55] LABS: THYROID STIMULATING HORMONE 2.997 uIU/mL (0.358-3.74)
[2023-01-21] MEDS: PROPRANOLOL HCL 40 MG TABLET NG SCH ×2 (09:00→16:52)
[2023-01-21] MEDS: MEROPENEM 1 G in IV NS 0.9% 100 ML IV SCH ×2 (09:08→22:06)
[2023-01-21] MEDS: PANTOPRAZOLE 40 MG/PACK PACK NG SCH ×2 (09:25→16:52)
[2023-01-21] MEDS: RIFAXIMIN 550 MG TABLET NG SCH ×2 (09:25→16:52)
[2023-01-21] MEDS: SERTRALINE HCL 25 MG TABLET NG SCH (09:25)
[2023-01-21] MEDS: DOCUSATE SODIUM LIQ 100 MG/10 ML UDC NG SCH ×2 (09:25→16:51)
[2023-01-21] MEDS: Z GUARD REMEDY 4 OZ OINT TP SCH (09:26)
[2023-01-21 11:07] LABS: *SPE A/G RATIO 0.9 (0.7-1.7); *SPE ALBUMIN 2.9 g/dL (2.9-4.4); *SPE ALPHA-1-GLOBULIN 0.2 g/dL (0.0-0.4); *SPE ALPHA-2-GLOBULIN 0.5 g/dL (0.4-1.0); *SPE BETA GLOBULIN 0.8 g/dL (0.7-1.3); *SPE GLOBULIN, TOTAL 3.2 g/dL (2.2-3.9); *SPE M-SPIKE Not Observed g/dL (Not Observed); *SPE PROTEIN TOTAL 6.1 g/dL (6.0-8.5); *SPEGAMMA GLOBULIN 1.7 g/dL (0.4-1.8)
[2023-01-21 17:05] LABS: PROTEIN, BODY FLUID 1.3 G/DL
[2023-01-21 17:07] LABS: APPEARANCE,SPUN,BODY FLUID CLEAR (CLEAR); TOTAL VOLUME,BODY FLUID 4250 mL
[2023-01-21 17:13] LABS: WBC, BODY FLUID 216 /cu. mm. (0-200)
[2023-01-21] MEDS ORDERED: LACTULOSE 10 G/15 ML UDC (PYXIS) PO PRN (19:00)
[2023-01-21 21:28] LABS: MACROPHAGES, BODY FLUID 32; POLYNUCLEAR, BODY FLUID 25 % (0-25)
[2023-01-21] MEDS: IV NS 0.9% 250 ML IV PRN (22:17)
[2023-01-21] MEDS: NOREPINEPHRINE 8 MG in IV NS 0.9% 250ML IV PRN (22:29)
[2023-01-22] VITALS (45 sets, daily range): BP systolic 90–140; BP diastolic 50–101; TEMP 98–98.8; O2SAT 92–100
[2023-01-22] MEDS: SUCRALFATE 1 G/10 ML UDC PO SCH ×4 (01:19→18:25)
[2023-01-22] MEDS: HYDROCORTISONE SOD SUCCINATE 100 MG/2 ML VIAL IV SCH ×3 (05:45→21:17)
[2023-01-22 05:48] LABS: HEMATOCRIT 34 % (33-45); HEMOGLOBIN 10.4 g/dL (11.5-14.8); LYMPHOCYTES # (AUTO) 1.1 K/uL (0.8-4.8); MEAN CORPUSCULAR HEMOGLOBIN 23 PG (26.0-33.0); MEAN CORPUSCULAR HGB CONC 31 g/dl (31.0-36.0); MEAN CORPUSCULAR VOLUME 75 fL (82-100); MONOCYTES # (AUTO) 1.2 K/uL (0.1-1.30); MONOCYTES % (AUTO) 8.8 % (2.0-12.0); NEUTROPHILS # (AUTO) 11.7 K/uL (1.8-8.9); NEUTROPHILS % (AUTO) 83.2 % (43.0-81.0); PLATELET COUNT (AUTO) 164 K/uL (150-450); RED BLOOD CELL COUNT(AUTO) 4.49 MIL/uL (4.0-5.2); RED CELL DISTRIBUTION WIDTH 27.6 % (11.5-15.0)
[2023-01-22 06:06] LABS: CALCIUM, SERUM 10.1 mg/dL (8.5-10.1); CREATININE 1.1 mg/dL (0.6-1.3); MAGNESIUM 2.3 mg/dL (1.8-2.4); PHOSPHORUS 2.2 mg/dL (2.5-4.9); POTASSIUM 3.6 mmol/L (3.5-5.1); TOTAL PROTEIN, SERUM 5.7 g/dL (6.4-8.2)
[2023-01-22] MEDS: PROPRANOLOL HCL 40 MG TABLET PO SCH ×2 (08:12→17:00)
[2023-01-22] MEDS: MEROPENEM 1 G in IV NS 0.9% 100 ML IV SCH ×2 (08:16→21:17)
[2023-01-22] MEDS: RIFAXIMIN 550 MG TABLET PO SCH ×2 (08:56→18:25)
[2023-01-22] MEDS: SERTRALINE HCL 25 MG TABLET PO SCH (08:56)
[2023-01-22] MEDS: DOCUSATE SODIUM LIQ 100 MG/10 ML UDC PO SCH ×2 (08:56→18:25)
[2023-01-22] MEDS: PANTOPRAZOLE 40 MG/PACK PACK PO SCH ×2 (08:59→18:26)
[2023-01-22] MEDS ORDERED: APIXABAN 5 MG TABLET PO SCH (09:00)
[2023-01-22] MEDS: Z GUARD REMEDY 4 OZ OINT TP SCH (09:03)
[2023-01-22] MEDS ORDERED: ENSURE ENLIVE 237 ML LIQUID (VANILLA) PO SCH (13:00)
[2023-01-22] MEDS ORDERED: NEUTRA PHOS 1 POWD.PACKET PO ONE (18:00)
[2023-01-22] MEDS: ENSURE ENLIVE 237 ML LIQUID (VANILLA) PO SCH (18:26)
[2023-01-22] MEDS: ONDANSETRON HCL/PF 4 MG/2 ML VIAL IVP PRN (22:26)
[2023-01-23] VITALS (46 sets, daily range): BP systolic 74–146; BP diastolic 36–108; TEMP 97.7–98.6; O2SAT 92–98
[2023-01-23] MEDS: SUCRALFATE 1 G/10 ML UDC PO SCH ×2 (00:08→05:24)
[2023-01-23] MEDS: ONDANSETRON HCL/PF 4 MG/2 ML VIAL IVP PRN ×3 (00:57→18:28)
[2023-01-23] MEDS: MORPHINE SULFATE INJ 2 MG/ML DISP.SYRIN IV PRN (00:58)
[2023-01-23 04:36] LABS: BASOPHILS % (AUTO) 0.1 % (0.0-2.0); HEMATOCRIT 34 % (33-45); HEMOGLOBIN 10.5 g/dL (11.5-14.8); LYMPHOCYTES # (AUTO) 0.8 K/uL (0.8-4.8); LYMPHOCYTES % (AUTO) 6.9 % (20.0-44.0); MEAN CORPUSCULAR HEMOGLOBIN 23 PG (26.0-33.0); MEAN CORPUSCULAR HGB CONC 31 g/dl (31.0-36.0); MEAN CORPUSCULAR VOLUME 76 fL (82-100); MONOCYTES # (AUTO) 1.3 K/uL (0.1-1.30); MONOCYTES % (AUTO) 10.6 % (2.0-12.0); NEUTROPHILS # (AUTO) 9.8 K/uL (1.8-8.9); NEUTROPHILS % (AUTO) 82.4 % (43.0-81.0); PLATELET COUNT (AUTO) 130 K/uL (150-450); RED BLOOD CELL COUNT(AUTO) 4.51 MIL/uL (4.0-5.2); RED CELL DISTRIBUTION WIDTH 27.6 % (11.5-15.0); WHITE BLOOD COUNT (AUTO) 11.9 K/uL (4.3-11.0)
[2023-01-23 04:52] LABS: MAGNESIUM 2.4 mg/dL (1.8-2.4); PHOSPHORUS 3.3 mg/dL (2.5-4.9)
[2023-01-23 04:56] LABS: BAND % (MANUAL) 1 % (0.0-5.0); LYMPHOCYTES % (MANUAL) 3 % (16-48); MONOCYTES % (MANUAL) 7 % (0-11.0); NEUTROPHILS % (MANUAL) 89 (42-76); PLATELET ESTIMATE DECREASED
[2023-01-23 04:57] LABS: ANISOCYTOSIS 1+; HYPOCHROMASIA 2+
[2023-01-23 04:58] LABS: TARGET CELLS 2+
[2023-01-23] MEDS: HYDROCORTISONE SOD SUCCINATE 100 MG/2 ML VIAL IV SCH ×2 (05:23→20:16)
[2023-01-23] MEDS: DOCUSATE SODIUM LIQ 100 MG/10 ML UDC PO SCH ×2 (08:23→16:16)
[2023-01-23] MEDS: PANTOPRAZOLE 40 MG/PACK PACK PO SCH ×2 (08:24→16:17)
[2023-01-23] MEDS: RIFAXIMIN 550 MG TABLET PO SCH ×2 (08:24→16:17)
[2023-01-23] MEDS: SERTRALINE HCL 25 MG TABLET PO SCH (08:24)
[2023-01-23] MEDS: PROPRANOLOL HCL 40 MG TABLET PO SCH ×2 (08:29→16:16)
[2023-01-23] MEDS: Z GUARD REMEDY 4 OZ OINT TP SCH (08:29)
[2023-01-23] MEDS: ENSURE ENLIVE 237 ML LIQUID (VANILLA) PO SCH ×3 (08:32→16:16)
[2023-01-23] MEDS: MEROPENEM 1 G in IV NS 0.9% 100 ML IV SCH (08:49)
[2023-01-23 09:17] LABS: APPEARANCE,URINE SLIGHTLY CLOUDY (CLEAR); BILIRUBIN,URINE 2+ (NEGATIVE); BLOOD, URINE 2+ Ery/uL (NEGATIVE); COLOR,URINE DARK YELLOW (YELLOW); KETONES,URINE TRACE mg/dL (NEGATIVE); LEUKOCYTE ESTERASE ,URINE NEGATIVE (NEGATIVE); NITRITE, URINE NEGATIVE (NEGATIVE); PROTEIN,URINE NEGATIVE (NEGATIVE); UGLUCOSE NEGATIVE (NEGATIVE)
[2023-01-23 09:41] LABS: ADD URINE CULTURE NO; BACTERIA,URINE Rare /HPF (None Seen); EOSINOPHIL,URINE None Seen; SQUAMOUS EPITHELIAL CELL,UR Few /HPF (None Seen); WBC,URINE 0-2 /HPF (0-3)
[2023-01-23 09:45] LABS: CREATININE, URINE 108.1 MG/DL (30.0-125.0); URINE SODIUM, RANDOM < 5 mmol/l (40-220); URINE TOTAL PROTEIN 38.4 mg/dL (0-11.9)
[2023-01-23] MEDS ORDERED: OCTREOTIDE 50 MCG in IV NS 0.9% 50 ML IJ ONE (10:30)
[2023-01-23 11:20] LABS: INR 1.72 (0.91-1.10); PARTIAL THROMBOPLASTIN TIME 42.2 SEC (24.3-34.3); PROTHROMBIN TIME 17.5 SECS (9.2-11.1)
[2023-01-23] MEDS: OCTREOTIDE 1,250 MCG in IV NS 0.9% 247.5 ML IV PRN (11:21)
[2023-01-23] MEDS: PHYTONADIONE INJ 10 MG/1 ML AMPUL SQ SCH (11:22)
[2023-01-23 11:25] LABS: BASOPHILS % (AUTO) 0.2 % (0.0-2.0); HEMATOCRIT 36 % (33-45); LYMPHOCYTES % (AUTO) 7.2 % (20.0-44.0); MEAN CORPUSCULAR HEMOGLOBIN 24 PG (26.0-33.0); MEAN CORPUSCULAR HGB CONC 31 g/dl (31.0-36.0); MEAN CORPUSCULAR VOLUME 77 fL (82-100); MONOCYTES # (AUTO) 1.3 K/uL (0.1-1.30); MONOCYTES % (AUTO) 9.1 % (2.0-12.0); NEUTROPHILS # (AUTO) 11.6 K/uL (1.8-8.9); NEUTROPHILS % (AUTO) 83.5 % (43.0-81.0); PLATELET COUNT (AUTO) 128 K/uL (150-450); RED BLOOD CELL COUNT(AUTO) 4.69 MIL/uL (4.0-5.2); RED CELL DISTRIBUTION WIDTH 28.2 % (11.5-15.0); WHITE BLOOD COUNT (AUTO) 13.8 K/uL (4.3-11.0)
[2023-01-23] MEDS: SUCRALFATE 1 G TABLET PO SCH ×2 (12:00→17:12)
[2023-01-23] MEDS: RIFAMPIN 300 MG CAPSULE PO SCH (15:00)
[2023-01-23] MEDS ORDERED: PYRIDOXINE HCL 50 MG TABLET PO SCH (15:00)
[2023-01-23] MEDS ORDERED: ISONIAZID (300 MG) 300 MG TABLET PO SCH (15:00)
[2023-01-23] MEDS: ETHAMBUTOL HCL (400 MG) 400 MG TABLET PO SCH (15:00)
[2023-01-23] MEDS: PYRAZINAMIDE 500 MG TABLET PO SCH (15:00)
[2023-01-23] MEDS ORDERED: IOHEXOL-300 100 ML VIAL IV ONE (15:26)
[2023-01-23] MEDS ORDERED: IV NS 0.9% 250 ML IV ONE (15:27)
[2023-01-23 17:34] LABS: HEMOGLOBIN 9.6 g/dL (11.5-14.8)
[2023-01-23] MEDS: NOREPINEPHRINE 8 MG in IV NS 0.9% 250ML IV PRN (17:54)
[2023-01-23] MEDS ORDERED: DOPamine 400 MG/D5W 250 ML RTU BAG IV SCH (23:00)
[2023-01-23] MEDS ORDERED: DOPamine 400MG/D5W 250ML RTU 250 ML IV ONE (23:30)
[2023-01-23 23:41] LABS: HIV-1 p24 ANTIGEN NON REACTIVE (NONREACTIVE); HIV-1/2 ANTIBODY NON REACTIVE (NONREACTIVE)
[2023-01-24] VITALS (68 sets, daily range): BP systolic 71–140; BP diastolic 41–91; TEMP 97.9–98.8; O2SAT 91–99
[2023-01-24] MEDS ORDERED: DOPamine 400 MG/D5W 250 ML RTU BAG IV SCH (03:00)
[2023-01-24] MEDS ORDERED: DOPamine 400MG/D5W 250ML RTU 250 ML IV ONE (03:30)
[2023-01-24 04:56] LABS: BASOPHILS % (AUTO) 0.1 % (0.0-2.0); EOSINOPHILS % (AUTO) 0.2 % (0.0-6.0); HEMATOCRIT 35 % (33-45); HEMOGLOBIN 10.7 g/dL (11.5-14.8); LYMPHOCYTES # (AUTO) 1.4 K/uL (0.8-4.8); MEAN CORPUSCULAR HEMOGLOBIN 24 PG (26.0-33.0); MEAN CORPUSCULAR HGB CONC 31 g/dl (31.0-36.0); MEAN CORPUSCULAR VOLUME 79 fL (82-100); MONOCYTES # (AUTO) 1.6 K/uL (0.1-1.30); NEUTROPHILS # (AUTO) 14.3 K/uL (1.8-8.9); NEUTROPHILS % (AUTO) 82.7 % (43.0-81.0); PLATELET COUNT (AUTO) 142 K/uL (150-450); RED BLOOD CELL COUNT(AUTO) 4.38 MIL/uL (4.0-5.2); RED CELL DISTRIBUTION WIDTH 25.6 % (11.5-15.0); WHITE BLOOD COUNT (AUTO) 17.2 K/uL (4.3-11.0)
[2023-01-24] MEDS ORDERED: DOPamine 400 MG/D5W 250 ML RTU BAG IV PRN (05:00)
[2023-01-24 05:24] LABS: ALBUMIN 2.1 g/dL (3.4-5.0); BILIRUBIN,DIRECT 7.6 mg/dL (0.0-0.2); CALCIUM, SERUM 10.5 mg/dL (8.5-10.1); CREATININE 1.3 mg/dL (0.6-1.3); MAGNESIUM 2.7 mg/dL (1.8-2.4); PHOSPHORUS 4.6 mg/dL (2.5-4.9); POTASSIUM 4.9 mmol/L (3.5-5.1); TOTAL PROTEIN, SERUM 5.9 g/dL (6.4-8.2)
[2023-01-24 05:25] LABS: INR 1.46 (0.91-1.10)
[2023-01-24] MEDS: SUCRALFATE 1 G TABLET PO SCH ×5 (06:00→23:58)
[2023-01-24] MEDS ORDERED: ANESTHESIA TRAY IN PYXIS 1 EA TRAY MC ONE (06:55)
[2023-01-24] MEDS ORDERED: DOPamine 400 MG in IV D5W 250 ML IV PRN ×2 (07:00→11:00)
[2023-01-24] MEDS ORDERED: KETAMINE HCL(200MG/20ML) 10 MG/ML VIAL ONE (07:36)
[2023-01-24] MEDS: RIFAMPIN 300 MG CAPSULE PO SCH ×2 (09:00→09:08)
[2023-01-24] MEDS: DOCUSATE SODIUM LIQ 100 MG/10 ML UDC PO SCH ×2 (09:00→17:00)
[2023-01-24] MEDS: PYRAZINAMIDE 500 MG TABLET PO SCH ×2 (09:00→09:09)
[2023-01-24] MEDS: ENSURE CLEAR 237 ML LIQUID (MIX BERRY) PO SCH ×3 (09:00→17:00)
[2023-01-24] MEDS: PANTOPRAZOLE 40 MG/PACK PACK PO SCH ×3 (09:00→17:00)
[2023-01-24] MEDS: ZINC SULFATE 220 MG CAPSULE PO SCH ×2 (09:00→09:08)
[2023-01-24] MEDS: SERTRALINE HCL 25 MG TABLET PO SCH ×2 (09:00→09:09)
[2023-01-24] MEDS: ETHAMBUTOL HCL (400 MG) 400 MG TABLET PO SCH (09:00)
[2023-01-24] MEDS: RIFAXIMIN 550 MG TABLET PO SCH ×3 (09:00→17:00)
[2023-01-24] MEDS: PROPRANOLOL HCL 40 MG TABLET PO SCH ×3 (09:00→17:00)
[2023-01-24] MEDS: HYDROCORTISONE SOD SUCCINATE 100 MG/2 ML VIAL IV SCH ×3 (09:11→20:25)
[2023-01-24] MEDS: PHYTONADIONE INJ 10 MG/1 ML AMPUL SQ SCH (09:12)
[2023-01-24] MEDS: Z GUARD REMEDY 4 OZ OINT TP SCH (09:26)
[2023-01-24 10:32] LABS: INR 1.42 (0.91-1.10); PARTIAL THROMBOPLASTIN TIME 31.7 SEC (24.3-34.3); PROTHROMBIN TIME 14.6 SECS (9.2-11.1)
[2023-01-24 10:36] LABS: D-DIMER 16.33 mg/L(FEU (0.17-0.50)
[2023-01-24] MEDS: OCTREOTIDE 1,250 MCG in IV NS 0.9% 247.5 ML IV PRN (10:52)
[2023-01-24 16:07] LABS: C-REACTIVE PROTEIN 0.5 mg/dL (0.0-0.9)
[2023-01-24] MEDS: FERROUS SULFATE (325 MG) 325 MG/TAB TABLET PO SCH (17:00)
[2023-01-24 17:23] LABS: RHEUMATOID FACTOR SCREEN NEGATIVE (NEGATIVE)
[2023-01-24] MEDS: DOPamine 400 MG in IV D5W 250 ML IV PRN (19:00)
[2023-01-24 21:44] LABS: HIV-1 p24 ANTIGEN NON REACTIVE (NONREACTIVE); HIV-1/2 ANTIBODY NON REACTIVE (NONREACTIVE)
[2023-01-25] VITALS (51 sets, daily range): BP systolic 63–121; BP diastolic 44–88; TEMP 93–98.2; O2SAT 92–100
[2023-01-25 05:02] LABS: BASOPHILS % (AUTO) 0.2 % (0.0-2.0); HEMATOCRIT 33 % (33-45); HEMOGLOBIN 10.4 g/dL (11.5-14.8); LYMPHOCYTES # (AUTO) 1.3 K/uL (0.8-4.8); LYMPHOCYTES % (AUTO) 8.1 % (20.0-44.0); MEAN CORPUSCULAR HEMOGLOBIN 25 PG (26.0-33.0); MEAN CORPUSCULAR HGB CONC 31 g/dl (31.0-36.0); MEAN CORPUSCULAR VOLUME 79 fL (82-100); MONOCYTES # (AUTO) 1.4 K/uL (0.1-1.30); MONOCYTES % (AUTO) 8.7 % (2.0-12.0); NEUTROPHILS # (AUTO) 13.3 K/uL (1.8-8.9); PLATELET COUNT (AUTO) 136 K/uL (150-450); RED BLOOD CELL COUNT(AUTO) 4.25 MIL/uL (4.0-5.2); RED CELL DISTRIBUTION WIDTH 25.7 % (11.5-15.0)
[2023-01-25 05:17] LABS: BILIRUBIN,TOTAL 11.8 mg/dL (0.2-1.0); CALCIUM, SERUM 10.3 mg/dL (8.5-10.1); CREATININE 1.6 mg/dL (0.6-1.3); MAGNESIUM 2.9 mg/dL (1.8-2.4); POTASSIUM 5.2 mmol/L (3.5-5.1); TOTAL PROTEIN, SERUM 5.7 g/dL (6.4-8.2)
[2023-01-25 05:21] LABS: D-DIMER 19.08 mg/L(FEU (0.17-0.50); INR 1.63 (0.91-1.10); PARTIAL THROMBOPLASTIN TIME 32.5 SEC (24.3-34.3); PROTHROMBIN TIME 16.6 SECS (9.2-11.1)
[2023-01-25] MEDS: SUCRALFATE 1 G TABLET PO SCH ×6 (06:00→23:39)
[2023-01-25] MEDS: ENSURE CLEAR 237 ML LIQUID (MIX BERRY) PO SCH ×3 (07:41→12:50)
[2023-01-25] MEDS: DOPamine 400 MG in IV D5W 250 ML IV PRN (08:46)
[2023-01-25] MEDS: PROPRANOLOL HCL 40 MG TABLET PO SCH ×2 (08:52→08:57)
[2023-01-25] MEDS: FERROUS SULFATE (325 MG) 325 MG/TAB TABLET PO SCH ×2 (08:52→08:56)
[2023-01-25] MEDS: DOCUSATE SODIUM LIQ 100 MG/10 ML UDC PO SCH ×2 (08:52→08:56)
[2023-01-25] MEDS: PANTOPRAZOLE 40 MG/PACK PACK PO SCH (08:53)
[2023-01-25] MEDS: SERTRALINE HCL 25 MG TABLET PO SCH (08:53)
[2023-01-25] MEDS: ZINC SULFATE 220 MG CAPSULE PO SCH (08:53)
[2023-01-25] MEDS: PYRAZINAMIDE 500 MG TABLET PO SCH (08:53)
[2023-01-25] MEDS: RIFAXIMIN 550 MG TABLET PO SCH ×2 (08:53→12:51)
[2023-01-25] MEDS: RIFAMPIN 300 MG CAPSULE PO SCH (08:53)
[2023-01-25] MEDS: ETHAMBUTOL HCL (400 MG) 400 MG TABLET PO SCH (08:53)
[2023-01-25] MEDS: Z GUARD REMEDY 4 OZ OINT TP SCH (08:54)
[2023-01-25] MEDS: HYDROCORTISONE SOD SUCCINATE 100 MG/2 ML VIAL IV SCH ×3 (09:22→17:38)
[2023-01-25] MEDS: PHYTONADIONE INJ 10 MG/1 ML AMPUL SQ SCH (09:22)
[2023-01-25] MEDS: OCTREOTIDE 1,250 MCG in IV NS 0.9% 247.5 ML IV PRN (12:11)
[2023-01-25] MEDS: NOREPINEPHRINE 8 MG in IV NS 0.9% 250ML IV PRN (12:13)
[2023-01-25] MEDS: LACTULOSE UDC 200 G in SODIUM CHLORIDE IRRIG SOLUTION 400 ML IR SCH ×2 (12:45→22:24)
[2023-01-25] MEDS ORDERED: PANTOPRAZOLE 40 MG VIAL IV SCH (17:00)
[2023-01-25 19:38] LABS: OCCULT BLOOD STOOL POSITIVE (NEGATIVE)
[2023-01-25] MEDS ORDERED: CT SWABBABLE VALVE TRANS SET 1 EA INFUS.SET MC ONE (20:15)
[2023-01-25] MEDS ORDERED: IV NS 0.9% 250 ML IV ONE (20:15)
[2023-01-25] MEDS ORDERED: IOHEXOL-300 100 ML VIAL IV ONE (20:15)
[2023-01-25] MEDS ORDERED: NOREPINEPHRINE 32 MG in IV NS 0.9% 218 ML IV PRN (23:30)
[2023-01-25] MEDS ORDERED: NOREPINEPHRINE 4 MG/4 ML AMPUL IV ONE ×2 (23:34→23:38)
[2023-01-26] VITALS (8 sets, daily range): BP systolic 87–104; BP diastolic 62–79; TEMP 98.5; O2SAT 93–97
[2023-01-26] MEDS: HYDROCORTISONE SOD SUCCINATE 100 MG/2 ML VIAL IV SCH ×2 (00:02→05:45)
[2023-01-26 05:14] LABS: HEMATOCRIT 35 % (33-45); HEMOGLOBIN 10.4 g/dL (11.5-14.8); LYMPHOCYTES # (AUTO) 1.5 K/uL (0.8-4.8); LYMPHOCYTES % (AUTO) 6.5 % (20.0-44.0); MEAN CORPUSCULAR HEMOGLOBIN 25 PG (26.0-33.0); MEAN CORPUSCULAR HGB CONC 30 g/dl (31.0-36.0); MEAN CORPUSCULAR VOLUME 84 fL (82-100); MONOCYTES # (AUTO) 2.3 K/uL (0.1-1.30); MONOCYTES % (AUTO) 9.7 % (2.0-12.0); NEUTROPHILS # (AUTO) 19.6 K/uL (1.8-8.9); NEUTROPHILS % (AUTO) 83.8 % (43.0-81.0); PLATELET COUNT (AUTO) 126 K/uL (150-450); RED CELL DISTRIBUTION WIDTH 27.6 % (11.5-15.0); WHITE BLOOD COUNT (AUTO) 23.5 K/uL (4.3-11.0)
[2023-01-26 05:37] LABS: INR 3.89 (0.91-1.10); PARTIAL THROMBOPLASTIN TIME 61.2 SEC (24.3-34.3); PROTHROMBIN TIME 37.8 SECS (9.2-11.1)
[2023-01-26 05:41] LABS: D-DIMER 35.2 mg/L(FEU (0.17-0.50)
[2023-01-26] MEDS ORDERED: DEXTROSE 50%-WATER 50 ML DISP.SYRIN IV ONE (08:26)
[2023-01-26] MEDS ORDERED: EPINEPHRINE (1:10,000) SYRINGE 1 MG/10 ML DISP.SYRIN IVP ONE (08:26)
[2023-01-26] MEDS ORDERED: SODIUM BICARBONATE SYR 50 MEQ/50 ML DISP.SYRIN IV ONE (08:26)
[2023-01-26 11:07] LABS: HAPTOGLOBIN 90 mg/dL (37-355); IMMUNOGLOBULIN A, SERUM 635 mg/dL (87-352); IMMUNOGLOBULIN G, SERUM 1355 mg/dL (586-1602); IMMUNOGLOBULIN M, SERUM 413 mg/dL (26-217)
[2023-01-27 01:06] LABS: AFP, TUMOR MARKER <1.8 ng/mL (0.0-9.2); CARBOHYDRATE AG 19-9 141 U/mL (0-35); FOLIC ACID 5.7 ng/mL (>3.0)
[2023-01-27 03:07] LABS: HEPATITIS B SURFACE AB Reactive (.)
[2023-01-27 22:06] LABS: *HIV-1 RNA BY PCR <20 copies/mL (.)
[2023-01-28 08:07] LABS: *ANA ANTI-CENTROMERE B AB <0.2 AI (0.0-0.9); *ANA ANTI-DNA(DS) AB, QN 4 IU/mL (0-9); *ANA ANTI-JO-1 <0.2 AI (0.0-0.9); *ANA ANTICHROMATIN ANTIBODY <0.2 AI (0.0-0.9); *ANA RNP ANTIBODIES <0.2 AI (0.0-0.9); *ANA SJOGREN'S ANTI-SS-A 0.6 AI (0.0-0.9); *ANA SJOGREN'S ANTI-SS-B <0.2 AI (0.0-0.9); *ANAANTI-SCLERODERMA-70 AB <0.2 AI (0.0-0.9); *ANASMITH AB <0.2 AI (0.0-0.9)
[2023-01-29 13:07] LABS: FREE KAPPA LT CHAINS SERUM 99.3 mg/L (3.3-19.4); FREE LAMBDA LT CHAIN SERUM 41.7 mg/L (5.7-26.3); KAPPA/LAMBDA RATIO SERUM 2.38 (0.26-1.65)
== END 2023-01-26 11:04 | DRG 720 ==
LOC: ER 11:22 → TELE-TD 17:03 → ICU 17:21
PROVIDERS: ADMIT Internal Medicine; ATTEND Nurse Practitioner Family
PROC: 5A1945Z Respiratory Ventilation, 24-96 Consecutive Hours (ICD-10-PCS; principal; 2023-01-15)
PROC: 0BH17EZ Insertion of Endotracheal Airway into Trachea, Via Natural or Artificial Opening (ICD-10-PCS; 2023-01-15)
PROC: 02HV33Z Insertion of Infusion Device into Superior Vena Cava, Percutaneous Approach (ICD-10-PCS; 2023-01-15)
PROC: B548ZZA Ultrasonography of Superior Vena Cava, Guidance (ICD-10-PCS; 2023-01-15)
PROC: 0W9B3ZX Drainage of Left Pleural Cavity, Percutaneous Approach, Diagnostic (ICD-10-PCS; 2023-01-20)
PROC: 0W9G3ZX Drainage of Peritoneal Cavity, Percutaneous Approach, Diagnostic (ICD-10-PCS; 2023-01-21)
PROC: 30233K1 Transfusion of Nonautologous Frozen Plasma into Peripheral Vein, Percutaneous Approach (ICD-10-PCS; 2023-01-23)
PROC: 30233N1 Transfusion of Nonautologous Red Blood Cells into Peripheral Vein, Percutaneous Approach (ICD-10-PCS; 2023-01-23)
PROC: 30233M1 Transfusion of Nonautologous Plasma Cryoprecipitate into Peripheral Vein, Percutaneous Approach (ICD-10-PCS; 2023-01-23)
PROC: 0BH17EZ Insertion of Endotracheal Airway into Trachea, Via Natural or Artificial Opening (ICD-10-PCS; 2023-01-26)
PROC: 5A12012 Performance of Cardiac Output, Single, Manual (ICD-10-PCS; 2023-01-26)
DX: A41.89 Other specified sepsis (principal); J96.01 Acute respiratory failure with hypoxia; N17.0 Acute kidney failure with tubular necrosis; D65 Disseminated intravascular coagulation [defibrination syndrome]; J69.0 Pneumonitis due to inhalation of food and vomit; R65.21 Severe sepsis with septic shock; R57.1 Hypovolemic shock; G93.41 Metabolic encephalopathy; E72.29 Other disorders of urea cycle metabolism; D61.818 Other pancytopenia; I21.A1 Myocardial infarction type 2; K76.82 Hepatic encephalopathy; K70.31 Alcoholic cirrhosis of liver with ascites; Z86.711 Personal history of pulmonary embolism; Z86.718 Personal history of other venous thrombosis and embolism; Z87.11 Personal history of peptic ulcer disease; Z86.16 Personal history of COVID-19; Z85.3 Personal history of malignant neoplasm of breast; Z87.19 Personal history of other diseases of the digestive system; Z90.721 Acquired absence of ovaries, unilateral; Z88.1 Allergy status to other antibiotic agents; Z79.899 Other long term (current) drug therapy; Z68.30 Body mass index [BMI] 30.0-30.9, adult; E86.9 Volume depletion, unspecified; E87.1 Hypo-osmolality and hyponatremia; E87.4 Mixed disorder of acid-base balance; E87.5 Hyperkalemia; I48.91 Unspecified atrial fibrillation; J90 Pleural effusion, not elsewhere classified; K21.9 Gastro-esophageal reflux disease without esophagitis; K44.9 Diaphragmatic hernia without obstruction or gangrene; K72.10 Chronic hepatic failure without coma; E88.09 Other disorders of plasma-protein metabolism, not elsewhere classified; E27.40 Unspecified adrenocortical insufficiency; K57.30 Diverticulosis of large intestine without perforation or abscess without bleeding; N18.9 Chronic kidney disease, unspecified; N39.0 Urinary tract infection, site not specified; D68.9 Coagulation defect, unspecified; D64.9 Anemia, unspecified; C50.912 Malignant neoplasm of unspecified site of left female breast; C79.51 Secondary malignant neoplasm of bone; C77.9 Secondary and unspecified malignant neoplasm of lymph node, unspecified; A15.0 Tuberculosis of lung; D50.9 Iron deficiency anemia, unspecified; M84.40XA Pathological fracture, unspecified site, initial encounter for fracture; Z17.1 Estrogen receptor negative status [ER-]; Z79.01 Long term (current) use of anticoagulants; E66.01 Morbid (severe) obesity due to excess calories; Z68.34 Body mass index [BMI] 34.0-34.9, adult; I85.11 Secondary esophageal varices with bleeding
CPT/HCPCS: 31720; 36415; 36569; 36600; 38221; 49083; 70450-TC; 71045-TC; 71270-TC; 76642-LT-TC; 76700-TC; 76705-TC; 80048-TC; 80053-TC; 80076-TC; 80202-TC; 81001; 82105; 82140-TC; 82248-TC; 82272-TC; 82378; 82533; 82550-TC; 82570-TC; 82607-TC; 82728-TC; 82784; 82803-TC; 83010; 83540-TC; 83605-TC; 83615-TC; 83690-TC; 83735-TC; 83880; 83970; 84100-TC; 84155; 84165; 84300-TC; 84443-TC; 84478-TC; 84484-TC; 85025-TC; 85027-TC; 85045-TC; 85385-TC; 85396; 85610-TC; 85652-TC; 85730-TC; 86140-TC; 86225; 86235; 86300; 86301; 86334; 86431-TC; 86480; 86706; 86803; 86850-TC; 86880-TC; 87040-TC; 87086-TC; 87102-TC; 87116; 87206; 87340; 87536; 87556-TC; 87806; 88108-TC; 88305-TC; 88312-TC; 88341; 88342; 89051-TC; 92526; 92611-TC; 93307-TC; 94002-TC; 94003-TC; 94640-TC; 94799-TC; 97110-TC; 97530-TC; A4216; A4217; A4223; C9113; G0378; G0480; J0171; J0696; J1265; J1650; J1720; J1940; J1956; J2185; J2270; J2354; J2405; J3370; J3430; J3480; J3490; J7030; J7040; J7042; J7050; J7060; P9012; P9016; P9017; P9047; Q9967